=== PATIENT | male | born 1955 | race Caucasian/White ===

== ENCOUNTER → 2021-03-26 12:18 | Outpatient (BNVA) | payer OTHER, SELFPAY | PROVIDERS: Visit Provider Nurse Practitioner Family | DX: M54.9 Dorsalgia, unspecified (principal) | CPT/HCPCS: 81000 ==

== ENCOUNTER 2021-04-23 19:31 | Emergency (ER) | payer OTHER, SELFPAY ==
[2021-04-23 19:45] VITALS: BP 137/95; PULSE 87; RESP 16; TEMP 36.8; O2SAT 94; BMI 24.3
--- NOTE | 2021-04-23 23:18 | CTR_ITS ---
PROCEDURE INFORMATION: Exam: CT Abdomen And Pelvis Without Contrast Exam date and time: 04/23/2021 11:18 PM Age: 65 years old Clinical indication: Abdominal pain; Flank; Right; Prior surgery; Surgery date: 6+ months; Surgery type: Colon resection; Patient HX: HX of colon cancer; Additional info: Right flank pain TECHNIQUE: Imaging protocol: Computed tomography of the abdomen and pelvis without contrast. Radiation optimization: All CT scans at this facility use at least one of these dose optimization techniques: automated exposure control; mA and/or kV adjustment per patient size (includes targeted exams where dose is matched to clinical indication); or iterative reconstruction. COMPARISON: No relevant prior studies available. RADIATION DOSE METRICS: Total DLP (mGy-cm): 1205.2 FINDINGS: Lungs: The lung bases are clear. No effusion Liver: There is fatty infiltration of the liver. Gallbladder and bile ducts: No wall thickening, pericholecystic fluid or stones. Pancreas: Normal. No ductal dilation. Spleen: Normal. No splenomegaly. Adrenal glands: Normal. No mass. Kidneys and ureters: Multiple nonobstructing right renal stones, largest measures 4 mm. There is a subcentimeter low-attenuation lesions/lesions, of the right kidney which are too small to accurately characterize by CT. 6 mm mildly obstructing right distal ureteral stone. Multiple nonobstructing left renal stones, largest measures 6 mm. There is scarring and atrophy of the lower pole of the left kidney. Stomach and bowel: Unremarkable. No obstruction. No mucosal thickening. Appendix: Appendix has been removed. Intraperitoneal space: Unremarkable. No free air. No significant fluid collection. Vasculature: Unremarkable. No abdominal aortic aneurysm. Lymph nodes: Unremarkable. No enlarged lymph nodes. Urinary bladder: Unremarkable as visualized. Reproductive: Unremarkable as visualized. Bones/joints: Unremarkable. No acute fracture. Soft tissues: Unremarkable. CT/CT kidney stone [id number] IMPRESSION: 1. 6 mm mildly obstructing right distal ureteral stone. 2. Fatty infiltration of the liver. 3. Bilateral nonobstructing renal pelvis stones. COMMENTS: Consistent with the [employer]'s Incidental Findings Committee white paper (J Am Andie Radiol 2018): Any incidental renal lesion less than 1 cm or classified as too small to characterize, or any incidental cystic renal lesion characterized as simple-appearing, is likely benign. No follow-up imaging is recommended for these lesions per consensus recommendations based on imaging criteria. Radiation Dose CTDIVOL = (mGy): DLP = 1205.2 (mGy-cm)
--- NOTE | 2021-04-23 23:20 | ED_ITS ---
HPI - Male Genitourinary General: Chief complaint: Urogenital-Male Stated complaint: Passing Blood Time Seen by Provider: 04/23/21 23:16 History of Present Illness: HPI Narrative: Patient comes in today for complaints of right flank pain radiating into the groin. Patient reports that he had a similar episode about 1 month ago and his primary care thought it was probably a kidney stone and had recommended that they monitor for passage of the stone. Patient been doing well until this evening when he noticed more blood in his urine and came in to be evaluated. Patient does report some flank pain going into his right groin. Patient denies any problems urinating. Patient appears well. Patient appears in mild to moderate pain. Patient has been told in the past he has kidney stones. Review of Systems General: Reports: 10 or more systems reviewed and unremarkable except in HPI and below : Reports: other (Hematuria, right flank pain) [facility] ED PFSH: Social History (Updated 03/26/21 @ 12:11 by Queenie Verma LPN) Smoking and tobacco status: former smoker Physical Exam Const: COMMON NORMALS: no acute distress and patient oriented x3 GENERAL APPEARANCE: cooperative HENMT: COMMON NORMALS: normocephalic and Normal external nose present HEAD & SCALP: normal to inspection and normocephalic NOSE: Normal external nose present MOUTH: Normal oral and palatal mucosa present Eye: GENERAL EYE: appearance normal, both eyes and all related structures Neck/C-Spine: COMMON NORMALS: full ROM Chest: COMMONS NORMALS: normal inspection of the chest Resp: COMMON NORMALS: normal respiratory effort EFFORT & INSPECTION: Yes able to speak in complete sentences Cardio: COMMON NORMALS: regular rate and regular rhythm RATE: regular rate RHYTHM: regular rhythm GI: COMMON NORMALS: non-tender : BLADDER/KIDNEY EXAM: Yes CVA tenderness on the right Back/Pelvis: COMMON NORMALS: thoracic and lumbar spine normal to inspection GENERAL BACK: Yes CVA tenderness Extremity: COMMON NORMALS: normal to inspection Neuro: COMMON NORMALS: patient oriented x3 and moves all extremities Psych: COMMON NORMALS: mental status grossly normal and cooperative Skin: COMMON NORMALS: no rashes or lesions noted GENERAL SKIN EXAM: no rashes or lesions noted Course Vital Signs: Vital signs: Vital Signs Temperature 98.3 F 04/23/21 19:45 Pulse Rate 66 04/24/21 01:00 Respiratory Rate 18 04/24/21 01:03 Blood Pressure 134/89 04/24/21 01:00 Pulse Oximetry 99 04/24/21 01:03 MDM - Male MDM Narrative: Medical decision making narrative: Patient comes in with right flank pain radiating into the groin. On exam patient has some CVA tenderness in the right flank. Abdomen soft with some tenderness in the right lower quadrant. Vital signs are normal. Differential diagnosis includes renal calculi, appendicitis, urinary tract infection. Laboratory values noted a gross amount of blood in the urine, white blood cell count on labs was normal and renal function was normal. CT of the abdomen pelvis noted a 6 mm stone in the lower third of the right ureter. Reviewed exam with patient with recommendations for follow-up with urology. Discussed need for return to the ER for high fever or uncontrolled pain. Patient reported understanding and agreed to plan. Patient was given a dose of ceftriaxone for prophylaxis therapy due to some white blood cells in the urine although I do not believe patient has a infection at this time due to him not having fever and a normal blood cell count. Patient agreed to plan of treatment with recommendations for follow-up. Patient also reported understanding of need to return. Lab Data: Labs: Lab Results 04/23/21 04/23/21 04/24/21 Range/Units 23:36 23:36 00:21 WBC 7.6 (4.0-10.0) 10^3/ uL RBC 4.32 (4.1-5.3) 10^6/u L Hgb 13.2 (11.7-16.6) g/dL Hct 38.4 L (42.0-52.0) % MCV 88.9 (80-94) fL MCH 30.6 (28.0-34.0) pg MCHC 34.4 (30.0-36.0) g/dL RDW 13.2 (12.1-15.1) % Plt Count 214 (130-400) 10^3/c mm MPV 11.0 H (7.4-10.4) fL Neut % (Auto) 55.8 % Lymph % (Auto) 33.6 % [place] % (Auto) 7.9 % Eos % (Auto) 1.7 % Baso % (Auto) 0.7 % Neut # (Auto) 4.27 (1.8-7.7) 10^3/u L Lymph # (Auto) 2.6 (0.8-4.8) 10^3/u L [place] # (Auto) 0.6 (0.2-0.9) 10^3/u L Eos # (Auto) 0.1 (0.0-0.8) 10^3/u L Baso # (Auto) 0.1 (0.0-0.1) 10^3/u L Nucleated RBC % (a uto) 0 % Nucleated RBCs # 0.0 /100WBC Sodium 140 (136-145) mmol/L Potassium 3.9 (3.5-5.1) mmol/L Chloride 106 (98-107) mmol/L Carbon Dioxide 21 L (22-29) mmol/L Anion Gap 16.9 (5-19) BUN 19 (8-23) mg/dL Creatinine 0.9 (0.7-1.2) mg/dL GFR Calculation 84.4 L (90-130) mL/min Glucose 106 (65-115) mg/dL Calculated Osmolal ity 293 (285-295) mOsm/k g Calcium 8.7 (8.5-10.5) mg/dL Total Bilirubin 0.3 (0.15-1.2) mg/dL AST 26 (0-40) U/L ALT 35 (0-41) U/L Alkaline Phosphata se 63 (40-130) IU/L Total Protein 7.4 (6.6-8.7) g/dL Albumin 4.7 (3.5-5.2) g/dL Globulin 2.7 (1.3-4.6) g/dL Urine Color Brown (Yellow) Urine Appearance Sl cloudy A (CLEAR) Urine pH 5 (5-7) Ur Specific Gravit y 1.025 (1.005-1.030) Urine Protein 1+ H (Negative) Urine Glucose (UA) Norm (Normal) Urine Ketones Negative (Negative) Urine Blood 3+ H (Negative) Urine Nitrate Negative (Negative) Urine Bilirubin Neg (Negative) Urine Urobilinogen 1 H (Negative) mg/dL Ur Leukocyte Kristen ase 1+ H (Negative) Urine RBC Too numerous to c nt H (0-2) /hpf Urine WBC 15-25 H (0-5) /hpf Ur Squamous Epith Cells 0-4 H (0-5) /hpf Calcium Oxalate Cr ystal 40-55 H /hpf Amorphous Sediment Not Reportable Urine Bacteria 2+ H (NONE) /hpf Urine Mucus 2+ /hpf Discharge Plan Discharge Patient Disposition: Home Clinical Impression: Right ureteral stone Condition: Stable Prescriptions: New hydrocodone-acetaminophen 5-325 mg tablet 1 tab PO Q6H PRN (Reason: pain (scale score 7-10)) Qty: 14 RF: 0 tamsulosin 0.4 mg capsule 0.4 mg PO DAILY Qty: 10 RF: 0 ondansetron HCl 4 mg tablet 4 mg PO Q8H PRN (Reason: nausea and vomiting) Qty: 7 RF: 0 No Action simvastatin 40 mg tablet 40 mg PO DAILY RF: 0 fenofibrate nanocrystallized 145 mg tablet 145 mg PO DAILY RF: 0 montelukast [Singulair] 10 mg tablet 10 mg PO DAILY RF: 0 gabapentin 300 mg capsule 300 mg PO TID RF: 0 fluticasone propionate 50 mcg/actuation spray,suspension 1 spray intranasal BID RF: 0 albuterol sulfate [ProAir HFA] 90 mcg/actuation HFA aerosol inhaler 2 puff inhalation Q6H PRNRF: 0 aspirin [Adult Aspirin Regimen] 81 mg tablet,delayed release (DR/EC) 81 mg PO DAILY RF: 0 Discharge Orders: Discharge ED (Routine); Ordered 04/24/21 Ordered By: Beltran Montgomery Discharge Diet: Usual diet Discharge Activity: Increase activity as tolerated Patient Instructions: Kidney Stones (ED), Opioid Safety Activity Restrictions/Additional Instructions: Take medication as directed. Healthy diet and activity. Follow-up with urologist for further treatment. Case management will contact you on Monday to assist with the appointment. Return to the emergency room for high fever or uncontrolled pain. Coding Level of Care Code ED Store Hand for [facility]wsreek[facility] Exam Comprehensive
[2021-04-23 23:48] LABS: Basophils # 0.1 10^3/uL (0.0-0.1); Basophils % 0.7 %; Eosinophils # 0.1 10^3/uL (0.0-0.8); Eosinophils % 1.7 %; Hematocrit 38.4 % (42.0-52.0); Hemoglobin 13.2 g/dL (11.7-16.6); Lymphocytes # 2.6 10^3/uL (0.8-4.8); Lymphocytes % 33.6 %; Mean Corpuscular HGB Conc 34.4 g/dL (30.0-36.0); Mean Corpuscular Hemoglobin 30.6 pg (28.0-34.0); Mean Corpuscular Volume 88.9 fL (80-94); Monocytes # 0.6 10^3/uL (0.2-0.9); Monocytes % 7.9 %; Neutrophils # 4.27 10^3/uL (1.8-7.7); Neutrophils % 55.8 %; Nucleated Red Blood Cells % 0 %; Platelet Count 214 10^3/cmm (130-400); Red Blood Count 4.32 10^6/uL (4.1-5.3); Red Cell Distribution Width 13.2 % (12.1-15.1); White Blood Count 7.6 10^3/uL (4.0-10.0)
[2021-04-24 00:08] LABS: Alanine Aminotransferase 35 U/L (0-41); Albumin Level 4.7 g/dL (3.5-5.2); Alkaline Phosphatase 63 IU/L (40-130); Anion Gap 16.9 (5-19); Aspartate Amino Transferase 26 U/L (0-40); Blood Urea Nitrogen 19 mg/dL (8-23); Calcium 8.7 mg/dL (8.5-10.5); Carbon Dioxide 21 mmol/L (22-29); Chloride 106 mmol/L (98-107); Globulin 2.7 g/dL (1.3-4.6); Glomerular Filtration Rate 84.4 mL/min (90-130); Glucose 106 mg/dL (65-115); Osmolality Calculated 293 mOsm/kg (285-295); Potassium 3.9 mmol/L (3.5-5.1); Sodium 140 mmol/L (136-145); Total Bilirubin 0.3 mg/dL (0.15-1.2); Total Protein 7.4 g/dL (6.6-8.7)
[2021-04-24 00:26] VITALS: BP 134/89; PULSE 69; RESP 18; O2SAT 95
[2021-04-24 00:44] LABS: Bilirubin Urine Neg (Negative); Blood Urine 3+ (Negative); Glucose Urine UA Norm (Normal); Ketones Urine Negative (Negative); Nitrate Urine Negative (Negative); Protein Urine 1+ (Negative); Specific Gravity, Urine 1.025 (1.005-1.030); Urine Color Brown (Yellow); pH Urine 5 (5-7)
[2021-04-24 00:45] LABS: Add Urine Microscopic? YES; Leukocyte Esterase Urine 1+ (Negative); Urobilinogen Urine 1 mg/dL (Negative)
[2021-04-24 01:00] VITALS: BP 134/89; PULSE 66; RESP 18; O2SAT 95
[2021-04-24 01:01] LABS: RBC Urine TOO NUMEROUS TO CNT /hpf (0-2)
[2021-04-24 01:02] LABS: Add Urine Culture? Yes; Bacteria Urine 2+ /hpf; Calcium Oxalate Crystals Urine 40-55 /hpf; Mucus Urine 2+ /hpf; Squamous Epithelial Cell Urine 0-4 /hpf (0-5); WBC Urine 15-25 /hpf (0-5)
[2021-04-24 01:03] VITALS: RESP 18; O2SAT 99
[2021-04-24] MEDS: morphine 4 mg/mL SDV 1 mL 2 MG IVP (01:03)
[2021-04-24] MEDS: ketorolac 30 mg/mL INJ 15 MG IVP (01:03)
[2021-04-24] MEDS: ondansetron 2 mg/ML SDV 2 mL 4 MG IVP (01:03)
[2021-04-24] MEDS: cefTRIAXone 1,000 MG in sodium chloride 0.9% (plus) 50 ML 100 MG IV (01:09)
--- NOTE | 2021-04-26 08:23 | DCPLANNER ---
order manager had message to schedule a follow up appointment for patient with Dr. Mcknight. order manager called the office of Dr. Mcknight, spoke with Garima. order manager gave clinic patients information. order manager was told that patients information would be printed and reviewed. Clinic will call patient with appointment information. Patient has [employer] insurance, manager case emailed patients information over a secure email to Polly with [employer] [facility] so that the authorization process could be started.
--- NOTE | 2021-05-14 07:14 | DCPLANNER ---
Patient had a follow up appointment scheduled for 04.29.[address] Mcknight - patient did attend appointment.
== END 2021-04-24 01:26 | disposition home or self-care (01) ==
PROVIDERS: Emergency Provider Nurse Practitioner Family
DX: N20.1 Calculus of ureter (principal); Z79.82 Long term (current) use of aspirin; Z87.891 Personal history of nicotine dependence
CPT/HCPCS: 74176; 80053; 81001; 85025; 87077; 87086; 87186; 96365; 96375; 99284; J0696; J1885; J2270; J2405

== ENCOUNTER 2021-04-29 07:18 | Outpatient (CLI) | payer OTHER, SELFPAY ==
--- NOTE | 2021-04-28 10:57 | XR_ITS ---
WS: [id number] KUB, 04/29/2021 Clinical Data: STONES Comparison: CT abdomen and pelvis, CT 2020. Findings: No abnormal intraabdominal masses are seen. There is no dilatated small bowel or evidence of obstruct ion. There is a 0.6 cm calcification overlying the left kidney. There is a possible distal right ureteral calcification. There are clips overlying the sacrum from surgery. XR/XR KUB [id number] Impression: 1. Probable distal right ureteral calculus. 2. Probable left renal calculus.
== END 2021-04-29 07:19 | disposition home or self-care (01) ==
LOC: RAD 07:20
PROVIDERS: PCP Urology; Visit Provider Urology
DX: N20.9 Urinary calculus, unspecified (principal)
CPT/HCPCS: 74018; 81003; 87635

== ENCOUNTER 2021-05-03 11:36 | Day surgery (SDC) | payer OTHER, SELFPAY ==
[2021-04-30 11:35] VITALS: BMI 24.5
[2021-05-03] VITALS (7 sets, daily range): BP systolic 110–138; BP diastolic 69–97; PULSE 57–66; RESP 16–17; TEMP 36.2–36.6; O2SAT 90–98
--- NOTE | 2021-05-03 11:42 | XRR_ITS ---
PROCEDURE INFORMATION: Exam: XR Abdomen Exam date and time: 05/03/2021 11:42 AM Age: 65 years old Clinical indication: Screening exam; Other: Preop right eswl; Prior surgery; Surgery type: Colon TECHNIQUE: Imaging protocol: XR of the abdomen. Views: Frontal supine view of the abdomen. 1 View. COMPARISON: CR XR KUB [id number] 04/29/2021 7:34 AM FINDINGS: Gastrointestinal tract: Normal. No bowel dilation. Intraperitoneal space: Clips are present in the pelvis from old surgery. Organs: Stable 6 mm calcification projects on the left kidney. No ureteral calculi are seen. Bones/joints: Unremarkable. XR/XR KUB [id number] IMPRESSION: 1. Stable left nephrolithiasis. 2. No acute abnormality.
[2021-05-03] MEDS: sodium chloride 0.9% 1,000 ML 30 ML IV (12:30)
--- NOTE | 2021-05-03 13:52 | W.PM.OPSUD ---
Surgery/Procedure H&P Update DATE OF PROCEDURE: May 03, 2021 DATE H&P PERFORMED: 04/29/21 H&P UPDATE INFORMATION: I have reviewed H&P completed within last 30 days, I have examined patient prior to procedure, No changes to prior documentation and H&P is in [facility] [place] indicated CHANGES TO PREVIOUS DOCUMENTATION: No change in the position of the stone on KUB PREOP DIAGNOSIS: Right distal ureteral stone PLANNED PROCEDURE: Operation Date: 05/03/21 13:15 Proposed Procedures p Cystoscopy 95934 12456 n20.0 n20.1(Not Applicable) - Duane Mcknight MD s right ESWL(Right) - Duane Mcknight MD s Ureteral Stent Placement(Not Applicable) - Duane Mcknight MD
[2021-05-03] MEDS: levofloxacin-dextrose 5 % 500 MG/100 ML PREMIX 100 MG IV (14:15)
--- NOTE | 2021-05-03 14:35 | ANES.PREANE2 ---
Pre-Anesthetic Assessment Pre-Anesthetic Assessment: Height/Weight: Height 1.83 m Weight 82.1 kg Temp Pulse Resp BP Pulse Ox 97.3 F L 66 16 138/97 95 05/03/21 12:15 05/03/21 12:15 05/03/21 12:15 05/03/21 12:15 05/03/21 12:15 Preop Diagnosis: Right distal ureteral stone Proposed Procedure: Operation Date: 05/03/21 13:15 Proposed Procedures p Cystoscopy [id number] 50806 n20.0 n20.1(Not Applicable) - Duane Mcknight MD s right ESWL(Right) - Duane Mcknight MD s Ureteral Stent Placement(Not Applicable) - Duane Mcknight MD Was Beta Jessica taken within 24 hours: N/A Was Clonidine taken within 24 hours: N/A Last intake: Intake Last Liquid Date 05/03/21 Last Liquid Time 07:00 Last Solid Date 05/01/21 Last Solid Time 21:00 Social: Social History: No alcohol and No tobacco Exam: Pre-Anes Outpt Exam: alert, oriented x 3, clear to auscultation bilaterally and regular rate & rhythm Airway: Submandibular: WNL Cervical ROM: WNL MP: 2 Dentition: Partials Pulmonary: Pulmonary: Asthma Metabolic: Metabolic: Hyperlipidemia Anesthetic Plan: ASA status: 2 Anesthesia: General Risk of > 500 ml blood loss (7ml/kg in children): No Meds/Allergies Current Medications: Current Medications Generic Name Dose Route Start Last Admin Trade Name Freq PRN Reason Stop Dose Admin Sodium Chloride 1,000 mls @ 30 ml s/hr 05/03/21 11:45 05/03/21 12:30 Sodium Chloride 0.9% IV 05/04/21 11:44 30 mls/hr .Q24H DANIELLA Administration PFSH Anesthesia PFSH: Medical History Bilateral renal stones Surgical History H/O left knee surgery S/P colon resection Family History Father , at age 44 Cancer bone Mother , at age 29 Struck by lightning Social History Smoking and tobacco status: former smoker Alcohol intake: current Alcohol intake frequency: holidays/special occasions only Marital status: Current occupational status: retired History of recent travel: No Data Anesthesia Cardiac Studies: No Data to Display
[2021-05-03] MEDS: iohexol 300 mg/mL 50 mL Btl XX (15:02)
--- NOTE | 2021-05-03 15:09 | PM.OP ---
Operative Report Date of procedure: May 03, 2021 Pre-op Diagnosis: Right distal ureteral stone Post-op diagnosis: same Procedure Done: 1. Right distal ureteral stone extracorporeal shockwave lithotripsy 2. Right retrograde pyelogram, ureteral stent placement. (6 Croatian by 30 cm double-pigtail without string) Implants: Right ureteral stent Specimens removed/disposition: None Surgeon: Juan Luis Universal Branch Consultant: Lithotripsy Director Product Development: Mary Anesthesia: General Estimated blood loss: Less than 10 cc Urine output: Not measured Complications: None Findings: 1. The stone appeared to break well. 2. A stent was left indwelling. (6 Croatian by 30 cm double-pigtail without string) 3. Contrast injection confirmed intrarenal pelvic location of the wire with some persistent dilation Condition: stable Disposition: PACU Brief History: Mr. Torres is a very pleasant 65-year-old white male recently diagnosed with a large right distal ureteral stone with obstructive changes and marked hydronephrosis. He had failed to pass the stone over a fairly protracted period of symptoms. Ultimately he chose to proceed with treatment and after description of endoscopic versus ESWL he chose the latter. Procedure: After routine preoperative evaluation examination and obtaining of informed consent he was taken to the operating suite on 05/03/2021 where general anesthesia was administered without difficulty after appropriate timeout was performed, SCDs confirmed to be functioning, preoperative antibiotics administered, beta-casimiro protocol confirmed. Positioned on the Dornier unit such that the stone was located at the focal point with the shock head positioned anteriorly and the patient in supine position. A total of about 2200 shocks were administered to the stone with good change. Shockwave was initiated intensity of 1 advanced an intensity of 4. Rate was initiated at 70 but advanced to 90 once change was identified. At the completion of the procedure when the stone appeared to be well broken up he was then positioned in dorsolithotomy position paying careful attention to avoiding pressure points. Prepped and draped in usual sterile fashion. 21 Croatian cystoscope with 30 degree lens was introduced into the urethra meatus and advanced into the bladder without difficulty. Flexible tip guidewire was advanced up to the stone but would not easily pass. It was exchanged for a Glidewire which easily bypassed the stone fragments without difficulty. A 6 Croatian open-ended ureteral catheter was then advanced over the guidewire the guidewire removed and contrast was injected in the renal pelvis which confirmed intraluminal positioning and some persistence of hydronephrosis as expected. Irregular flexible tip guidewire was then advanced through the open-ended ureteral catheter the catheter removed and a 6 Croatian by 30 cm double-pigtail stent was advanced over the guidewire through the cystoscope into appropriate position as confirmed via fluoroscopy and cystoscopy. The bladder was drained and the procedure was completed. Reinspection of the area of treatment showed no obvious residual stone fragments identifiable with fluoroscopy. He was awakened in the operating room and returned to recovery in stable condition. PLANS: 1. Discharge from outpatient surgery is anticipated 2. Follow-up in 7 to 10 days with a KUB for possible cystoscopy and stent removal.
--- NOTE | 2021-05-03 15:17 | SUR.PHASEI ---
PT TO PACU SLEEPY WITH GOOD RESP NOTED PT DOES NOT AWAKE TO TOUCH, MASK 8L O2 TO PT.
--- NOTE | 2021-05-03 15:33 | ANE.PACU2 ---
Inpatient post-anesthesia follow up: Airway intact: Yes Vital signs: Temperature 97.2 F Pulse Rate 64 Respiratory Rate 17 Blood Pressure 111/71 Pulse Oximetry 96 Oxygen Delivery Me thod Room Air Oxygen Flow Rate 8 Fraction of Inspir ed Oxygen Hydration adequate: Yes Nausea and vomiting: No Pain level: 2 Mental status: Baseline
== END 2021-05-03 16:20 | disposition home or self-care (01) ==
PROVIDERS: PCP Nurse Practitioner; Visit Provider Urology
PROC: 0TJB8ZZ Inspection of Bladder, Via Natural or Artificial Opening Endoscopic (ICD-10-PCS; CPT 52000; principal; 2021-05-03 13:15)
PROC: (CPT 50590; 2021-05-03 13:15)
PROC: (CPT 50605; 2021-05-03 13:15)
DX: N20.1 Calculus of ureter (principal); J45.909 Unspecified asthma, uncomplicated; E78.5 Hyperlipidemia, unspecified; Z87.891 Personal history of nicotine dependence; Z79.82 Long term (current) use of aspirin
CPT/HCPCS: 50590; 52332; 74018; C2625; J1956; J2405; J2704; J3010; J3490; J7030; Q9967

== ENCOUNTER 2021-05-14 08:05 | Outpatient (CLI) | payer OTHER, SELFPAY ==
--- NOTE | 2021-05-14 08:00 | XR_ITS ---
WS: [id number] KUB, AP view, 05/14/2021 Clinical Data: post op Comparison: KUB, 05/03/2021. Findings: There is a right ureteral stent in good position. There are small calcifications overlying both kidne ys. No abnormal intraabdominal masses are seen. There is no dilatated small bowel or evidence of obstruct ion. XR/XR KUB [id number] Impression: Satisfactory position right ureteral stent.
== END 2021-05-14 08:06 | disposition home or self-care (01) ==
PROVIDERS: PCP Nurse Practitioner; Visit Provider Urology
DX: N20.0 Calculus of kidney (principal); Z96.0 Presence of urogenital implants
CPT/HCPCS: 74018; 81003

== ENCOUNTER → 2021-07-19 08:11 | Outpatient (BNVA) | payer OTHER, SELFPAY | PROVIDERS: PCP Nurse Practitioner; Visit Provider Specialist | DX: M25.511 Pain in right shoulder (principal); M19.011 Primary osteoarthritis, right shoulder | CPT/HCPCS: 73030 ==

== ENCOUNTER 2021-08-09 13:20 | Outpatient (CLI) | payer OTHER, SELFPAY ==
--- NOTE | 2021-08-09 13:26 | MR_ITS ---
WS: [id number] MRI RIGHT SHOULDER HISTORY: Chronic shoulder pain with decreasing motion. Osteoarthritis. COMPARISON: Radiograph 07/19/2021 TECHNIQUE: Multiplanar sequences of the shoulder joint are submitted. Mild AC joint narrowing with hypertrophic bone formation and mild thickening of the capsule. Only a v marie small amount of fluid in the subacromial and subdeltoid bursa. Small osteophyte and associated 5 mm cyst with mild encroachment upon the supraspinatus muscle and tendon at the level of the glenoid f rom the AC joint. There is an additional 6 mm osteophyte along the distal undersurface of the acromio n with adjacent fluid causing mild subacromial impingement upon the supraspinatus tendon. No os acrom ion. Biceps tendon in good position. Small multifocal insertion site tears involving the supraspinatus and infraspinatus tendons. These ar e partial-thickness tears involving the articular surface. Most significant involvement is of the sup raspinatus tendon. Subscapularis tendon appears intact. No muscle atrophy or edema. Mild intrasubstan ce degeneration within the labrum. No labral tear. Subchondral cystic changes are noted in the cut off saw operator metal ior lateral humeral head at the site of the rotator cuff attachments. MR/MR shoulder RT wo con* [id number] IMPRESSION: 1. Mild AC joint osteoarthritis with osteophyte and degenerative cystic change s mildly encroaching upon the supraspinatus tendon and muscle tear 2. Mild subacromial impingement upon the supraspinatus by 6 mm osteophyte. 3. Multiple small insertion site tears involving the supraspinatus and to a le sser extent infraspinatus tendon without retraction or muscle atrophy.
== END 2021-08-09 13:21 | disposition home or self-care (01) ==
PROVIDERS: PCP Nurse Practitioner; Visit Provider Specialist
DX: M19.011 Primary osteoarthritis, right shoulder (principal); M75.81 Other shoulder lesions, right shoulder; M25.711 Osteophyte, right shoulder; M75.101 Unspecified rotator cuff tear or rupture of right shoulder, not specified as traumatic
CPT/HCPCS: 73221

== ENCOUNTER 2021-11-18 12:12 | Outpatient (CLI) | payer OTHER, SELFPAY ==
--- NOTE | 2021-11-18 13:00 | XR_ITS ---
WS: [id number] XR KUB [id number] REASON FOR EXAM: BILATERAL RENAL STONES FINDINGS: Compared to 05/14/2021, the right ureteral stent is been removed. Sub-2 mm right lower pole renal calculus. No change from the previous examination. 4 mm left lower pole intrarenal calculus unchanged compared to the previous examination. No calculi along the course of the ureters or overlying the bladder identified. No other significant abdominal abnormality. XR/XR KUB [id number] IMPRESSION: Stable intrarenal calculi. The CT scan of 04/23/2021 demonstrated the above calculi as well as several othe r calculi within both the right and left kidneys which are not readily identifi able on the KUB of 05/14/2021 or the current KUB. Previously demonstrated right u reteral calculus was removed.
== END 2021-11-18 12:13 | disposition home or self-care (01) ==
LOC: RAD 12:16
PROVIDERS: PCP Nurse Practitioner; Visit Provider Urology
DX: N20.0 Calculus of kidney (principal)
CPT/HCPCS: 74018; 81003

== ENCOUNTER 2022-11-02 11:10 | Emergency (ER) | payer OTHER, SELFPAY ==
--- NOTE | 2022-11-02 11:22 | XRR_ITS ---
PROCEDURE INFORMATION: Exam: XR Chest Exam date and time: 11/02/2022 11:41 AM Age: 67 years old Clinical indication: Cough and dyspnea and shortness of breath; Additional info: Dyspnea/cough TECHNIQUE: Imaging protocol: Radiologic exam of the chest. Views: 1 view. COMPARISON: CR XR KUB [id number] 11/18/2021 12:53 PM FINDINGS: Lungs: Is a tiny benign granuloma in the right upper lobe.. No consolidation. Pleural spaces: Unremarkable. No pleural effusion. No pneumothorax. Heart/Mediastinum: Unremarkable. No cardiomegaly. Bones/joints: Unremarkable. XR/XR chest 1V portable [id number] IMPRESSION: No acute findings.
[2022-11-02 11:26] VITALS: BP 131/94; PULSE 73; RESP 16; TEMP 36.6; O2SAT 96; BMI 25.2
--- NOTE | 2022-11-02 11:30 | ED_ITS ---
HPI - SOB/Dyspnea General: Chief Complaint: Shortness of Breath/Dyspnea Stated Complaint: [facility] Time Seen by Provider: 11/02/22 11:22 Source: patient Mode of arrival: ambulatory History of Present Illness: HPI Narrative: 67-year-old male presents emergency room from the [facility]. Patient reports he has had a chronic cough with chest discomfort associated with the cough only for nearly a month now. He was seen earlier in the month thought to have a mild pneumonia treated with antibiotics his coughing is persisted although is no longer running fever and having only minimally productive cough patient does not smoke. He states that initially began after he been working outside around some leaves and some smoke then he got what they thought was a pneumonia and its persisted since that time he has used some albuterol as needed which helps minimally. He has no radiation of pain to his neck arms or back is not associated with exertion MD elicited complaint: shortness of breath and cough Onset (ago): week(s) Context: recent illness Timing: intermittent Severity: moderate Exacerbating factors: nothing Relieving factors: nothing Associated symptoms: Deny abdominal pain, chest congestion, chest pain, cough, diaphoresis, dizziness, extremity pain, fever(s), hemoptysis, lightheadedness, myalgias, nausea, orthopnea, palpitations, paresthesias, polydipsia, polyuria, rash, sense of impending doom, syncope or vomiting Treatment prior to arrival: none Review of Systems Const: Denies: fever(s), chills, fatigue, malaise or diaphoresis ENMT: Denies: throat pain, ear or mastoid pain, nasal discharge or nasal congestion Card: Denies: chest pain, palpitations, lightheadedness, syncope or orthopnea Resp: Reports: non-productive cough and wheezing; Denies: dyspnea, productive cough, hemoptysis or chest congestion GI: Denies: abdominal pain, nausea or vomiting : Denies: flank pain, dysuria, urinary frequency or urinary urgency Musc: Denies: extremity pain Skin/Breast: Denies: rash or pruritus Neuro: Denies: dizziness Endo: Denies: polyuria or polydipsia PFSH ED PFSH: Medical History Bilateral renal stones Surgical History H/O left knee surgery S/P colon resection Family History Father , at age 44 Cancer bone Mother , at age 29 Struck by lightning Social History Smoking and tobacco status: former smoker Alcohol intake: current Alcohol intake frequency: holidays/special occasions only Marital status: Current occupational status: retired History of recent travel: No Physical Exam Const: COMMON NORMALS: no acute distress GENERAL APPEARANCE: cooperative and comfortable ORIENTATION/CONSCIOUSNESS: Yes awake, Yes oriented to person, Yes oriented to place and Yes oriented to time HENMT: COMMON NORMALS: normocephalic, atraumatic and hearing grossly normal bilaterally HEAD & SCALP: normocephalic and atraumatic Resp: COMMON NORMALS: normal respiratory effort, No retractions, No use of accessory muscles and clear to auscultation bilaterally AUSCULTATION: clear to auscultation bilaterally Cardio: COMMON NORMALS: regular rate, regular rhythm and No murmurs present (Cardio) RATE: regular rate RHYTHM: regular rhythm GI: COMMON NORMALS: Soft to palpation and No hepatosplenomegaly present AUSCULTATION: Yes normoactive bowel sounds PALPATION: Yes Soft to palpation, No Tenderness to palpation present (GI), No Guarding due to palpation present (GI) and Yes No hepatosplenomegaly present Extremity: COMMON NORMALS: normal to inspection, capillary refill normal, no clubbing, cyanosis or edema, no calf tenderness and no pedal edema Neuro: SENSORIUM/ORIENTATION: Yes oriented to person, Yes oriented to place and Yes oriented to time Skin: COMMON NORMALS: no rashes or lesions noted GENERAL SKIN EXAM: no rashes or lesions noted Course Vital Signs: Vital signs: Vital Signs Temperature 97.8 F 11/02/22 11:26 Pulse Rate 77 11/02/22 13:00 Respiratory Rate 16 11/02/22 13:00 Blood Pressure 123/89 11/02/22 13:00 Pulse Oximetry 92 11/02/22 13:00 Oxygen Delivery Me thod 11/02/22 11:26 MDM - SOB/Dyspnea Medical Decision Making Chest x-ray is normal his exam is normal. I suspect this is postinfectious bronchospasm based on his history and presentation. Recommend that he starts on Advair 1 puff twice daily and then use albuterol as needed if he does begin needs improvement over the next couple of months he probably should have further evaluation including pulmonary function tests and evaluation with a pig machine supervisor if he has any worsening or change symptoms return to the emergency room. Medical Records I reviewed the patient's medical records. Lab Data I reviewed the patient's lab results. 11/02/22 11:42 11/02/22 11:42 Labs/Radiology: Radiology Impressions Chest X-Ray 11/02/22 11:22 IMPRESSION: No acute findings. Laboratory Results WBC 4.0 10^3/uL (4.0-10.0) 11/02/22 11:42 RBC 4.51 10^6/uL (4.1-5.3) 11/02/22 11:42 Hgb 13.8 g/dL (11.7-16.6) 11/02/22 11:42 Hct 40.7 % (42.0-52.0) L 11/02/22 11:42 MCV 90.2 fl (80-94) 11/02/22 11:42 MCH 30.6 pg (28.0-34.0) 11/02/22 11:42 MCHC 33.9 g/dL (30.0-36.0) 11/02/22 11:42 RDW 13.2 % (12.1-15.1) 11/02/22 11:42 Plt Count 191 10^3/cmm (130-400) 11/02/22 11:42 MPV 10.3 fL (7.4-10.4) 11/02/22 11:42 Neut % (Auto) 49.5 % 11/02/22 11:42 Lymph % (Auto) 38.4 % 11/02/22 11:42 [place] % (Auto) 10.1 % 11/02/22 11:42 Eos % (Auto) 1.5 % 11/02/22 11:42 Baso % (Auto) 0.5 % 11/02/22 11:42 Neut # (Auto) 1.97 10^3/uL (1.8-7.7) 11/02/22 11:42 Lymph # (Auto) 1.5 10^3/uL (0.8-4.8) 11/02/22 11:42 [place] # (Auto) 0.4 10^3/uL (0.2-0.9) 11/02/22 11:42 Eos # (Auto) 0.1 10^3/uL (0.0-0.8) 11/02/22 11:42 Baso # (Auto) 0.0 10^3/uL (0.0-0.1) 11/02/22 11:42 Nucleated RBC % (auto) 0 % 11/02/22 11:42 Nucleated RBCs # 0.0 /100WBC 11/02/22 11:42 Sodium 138 mmol/L (136-145) 11/02/22 11:42 Potassium 4.1 mmol/L (3.5-5.1) 11/02/22 11:42 Chloride 104 mmol/L (98-107) 11/02/22 11:42 Carbon Dioxide 24 mmol/L (22-29) 11/02/22 11:42 Anion Gap 14.1 (5-19) 11/02/22 11:42 BUN 19 mg/dL (8-23) 11/02/22 11:42 Creatinine 1.0 mg/dL (0.7-1.2) 11/02/22 11:42 GFR Calculation 74.3 mL/min (90-130) L 11/02/22 11:42 Glucose 122 mg/dL (65-115) H 11/02/22 11:42 Calculated Osmolality 290 mOsm/kg (285-295) 11/02/22 11:42 Calcium 9.5 mg/dL (8.5-10.5) 11/02/22 11:42 Total Bilirubin 0.5 mg/dL (0.15-1.2) 11/02/22 11:42 AST 19 U/L (0-40) 11/02/22 11:42 ALT 16 U/L (0-41) 11/02/22 11:42 Alkaline Phosphatase 53 U/L (40-130) 11/02/22 11:42 Total Protein 7.3 g/dL (6.6-8.7) 11/02/22 11:42 Albumin 4.2 g/dL (3.5-5.2) 11/02/22 11:42 Globulin 3.1 g/dL (1.3-4.6) 11/02/22 11:42 Discharge Plan Discharge Patient Disposition: Home Clinical Impression: Post-infection bronchospasm Condition: Stable Prescriptions: New Advair Diskus 100-50 mcg/dose blister with device 1 inh inhalation BID Qty: 60 0RF albuterol sulfate 90 mcg/actuation HFA aerosol inhaler 2 inh INHALATION Q4H PRN (Reason: shortness of breath or wheezing) Qty: 18 0RF Medrol (Pedro) 4 mg tablets,dose pack See Rx Instructions .ROUTE .COMPLEX Qty: 21 0RF Rx Instructions: orally per package directions No Action multivitamin Tablet 1 tab PO DAILY simvastatin 40 mg tablet 40 mg PO DAILY fenofibrate nanocrystallized 145 mg tablet 145 mg PO DAILY montelukast [Singulair] 10 mg tablet 10 mg PO DAILY gabapentin 300 mg capsule 300 mg PO TID fluticasone propionate 50 mcg/actuation spray,suspension 1 spray intranasal BID Rx Instructions: administer into each nostril albuterol sulfate [ProAir HFA] 90 mcg/actuation HFA aerosol inhaler 2 puff inhalation Q6H PRN (Reason: sob) aspirin [Adult Aspirin Regimen] 81 mg tablet,delayed release (DR/EC) 81 mg PO DAILY Zyrtec 10 mg capsule 10 mg PO DAILY PRN ergocalciferol (vitamin D2) 1,000 unit tablet PO tamsulosin 0.4 mg capsule 0.4 mg PO DAILY Qty: 10 0RF ondansetron HCl 4 mg tablet 4 mg PO Q8H PRN (Reason: nausea and vomiting) Qty: 7 0RF Discharge Orders: Discharge ED (Routine); Ordered 11/02/22 Ordered By: Fernie Marino Referrals: Tamiko Anderson FNP [Primary Care Provider] - Patient Instructions: Opioid Safety, Pain Management Activity Restrictions/Additional Instructions: You were seen today for persistent cough and shortness of breath. Recommend that you start the Advair 1 puff twice a day and steroid burst and taper. You can continue to use the albuterol as needed for cough or shortness of breath. Continue to follow-up with your primary care if this persists at some point you may need to see the pig machine supervisor. Coding Level of Care Code ED [facility] for [place]
[2022-11-02 11:34] VITALS: BP 131/94; PULSE 70; RESP 16; O2SAT 97
--- NOTE | 2022-11-02 11:35 | ECG_ITS ---
[facility] Test Date: 2022-11-02 Pat Name: Thaddeus Torres Department: Room: Gender: Male Scrap Piler: : 1955 Requested By: Fernie Martin Order Number: [id number] Pretty MD: Arleen Leyva M.D. Measurements Intervals [place] Rate: 71 P: 18 LA: 191 QRS: 66 QRSD: 96 T: 42 QT: 410 QTc: 447 Interpretive Statements SINUS RHYTHM POSSIBLE LATERAL MYOCARDIAL INFARCTION , OF INDETERMINATE AGE [30 ms Q WAVE IN I/aVL/V5/V6] No previous ECG available for comparison Electronically Signed On 11-02-2022 12:44:34 [employer] by Arleen Leyva M.D. [email or web address]
[2022-11-02 11:58] LABS: Basophils % 0.5 %; Eosinophils # 0.1 10^3/uL (0.0-0.8); Eosinophils % 1.5 %; Hematocrit 40.7 % (42.0-52.0); Hemoglobin 13.8 g/dL (11.7-16.6); Lymphocytes # 1.5 10^3/uL (0.8-4.8); Lymphocytes % 38.4 %; Mean Corpuscular HGB Conc 33.9 g/dL (30.0-36.0); Mean Corpuscular Hemoglobin 30.6 pg (28.0-34.0); Mean Corpuscular Volume 90.2 fl (80-94); Mean Platelet Volume 10.3 fL (7.4-10.4); Monocytes # 0.4 10^3/uL (0.2-0.9); Monocytes % 10.1 %; Neutrophils # 1.97 10^3/uL (1.8-7.7); Neutrophils % 49.5 %; Nucleated Red Blood Cells % 0 %; Platelet Count 191 10^3/cmm (130-400); Red Blood Count 4.51 10^6/uL (4.1-5.3); Red Cell Distribution Width 13.2 % (12.1-15.1)
[2022-11-02 12:20] LABS: Alanine Aminotransferase 16 U/L (0-41); Albumin Level 4.2 g/dL (3.5-5.2); Alkaline Phosphatase 53 U/L (40-130); Anion Gap 14.1 (5-19); Aspartate Amino Transferase 19 U/L (0-40); Blood Urea Nitrogen 19 mg/dL (8-23); Calcium 9.5 mg/dL (8.5-10.5); Carbon Dioxide 24 mmol/L (22-29); Chloride 104 mmol/L (98-107); Globulin 3.1 g/dL (1.3-4.6); Glomerular Filtration Rate 74.3 mL/min (90-130); Glucose 122 mg/dL (65-115); Osmolality Calculated 290 mOsm/kg (285-295); Potassium 4.1 mmol/L (3.5-5.1); Sodium 138 mmol/L (136-145); Total Bilirubin 0.5 mg/dL (0.15-1.2); Total Protein 7.3 g/dL (6.6-8.7)
[2022-11-02 12:34] VITALS: BP 123/89; PULSE 70; RESP 16; O2SAT 93
[2022-11-02 13:00] VITALS: BP 123/89; PULSE 77; RESP 16; O2SAT 92
== END 2022-11-02 12:59 | disposition home or self-care (01) ==
PROVIDERS: Emergency Provider Family Medicine; PCP Nurse Practitioner
DX: J20.8 Acute bronchitis due to other specified organisms (principal); Z87.891 Personal history of nicotine dependence
CPT/HCPCS: 71045; 80053; 85025; 93005; 99285

== ENCOUNTER 2022-11-17 10:17 | Outpatient (CLI) | payer OTHER, SELFPAY ==
--- NOTE | 2022-11-17 10:28 | XR_ITS ---
WS: [id number] XR KUB [id number] REASON FOR EXAM: STONES FINDINGS: Lower pole left renal calculus identified and unchanged in position or size compared to 11/18/2021. The 2 right intrarenal calculi demonstrated on the previous examination are not readily identifiable due to overlying bowel. No other urinary tract calculi are identified. No other abdominal abnormality. XR/XR KUB [id number] IMPRESSION: Stable urinary tract calculi as above.
== END 2022-11-17 10:18 | disposition home or self-care (01) ==
LOC: RAD 10:19
PROVIDERS: PCP Nurse Practitioner; Visit Provider Urology
DX: N20.0 Calculus of kidney (principal); N12 Tubulo-interstitial nephritis, not specified as acute or chronic
CPT/HCPCS: 74018; 81003; 99213

== ENCOUNTER 2023-02-10 06:00 | Outpatient (RCR) | payer OTHER, SELFPAY | END 2023-03-05 23:59 | disposition home or self-care (01) | LOC: TPT 06:00 | PROVIDERS: Visit Provider Orthopaedic Surgery | DX: Z47.89 Encounter for other orthopedic aftercare (principal); Z98.890 Other specified postprocedural states; M19.011 Primary osteoarthritis, right shoulder; M75.21 Bicipital tendinitis, right shoulder; M75.111 Incomplete rotator cuff tear or rupture of right shoulder, not specified as traumatic | CPT/HCPCS: 97110; 97140; 97162 ==

== ENCOUNTER 2023-03-06 06:00 | Outpatient (RCR) | payer OTHER, SELFPAY | END 2023-04-05 23:59 | disposition home or self-care (01) | LOC: TPT 06:00 | PROVIDERS: Visit Provider Orthopaedic Surgery | DX: Z47.89 Encounter for other orthopedic aftercare (principal) | CPT/HCPCS: 97110; 97140 ==

== ENCOUNTER 2023-04-06 06:00 | Outpatient (RCR) | payer OTHER, SELFPAY | END 2023-05-05 23:59 | disposition home or self-care (01) | LOC: TPT 06:00 | PROVIDERS: Visit Provider Orthopaedic Surgery | DX: Z47.89 Encounter for other orthopedic aftercare (principal) | CPT/HCPCS: 97110; 97140 ==

== ENCOUNTER 2023-05-06 06:00 | Outpatient (RCR) | payer OTHER, SELFPAY | END 2023-06-05 23:59 | disposition home or self-care (01) | LOC: TPT 06:00 | PROVIDERS: Visit Provider Orthopaedic Surgery | DX: Z47.89 Encounter for other orthopedic aftercare (principal) | CPT/HCPCS: 97110; 97140 ==

== ENCOUNTER → 2023-06-01 08:31 | Outpatient (BNVA) | payer OTHER, SELFPAY | PROVIDERS: PCP Nurse Practitioner; Visit Provider Nurse Practitioner Family | DX: L57.0 Actinic keratosis (principal); L57.8 Other skin changes due to chronic exposure to nonionizing radiation; L81.4 Other melanin hyperpigmentation; D22.5 Melanocytic nevi of trunk; L85.3 Xerosis cutis | CPT/HCPCS: 17000; 99213 ==

== ENCOUNTER 2023-06-06 06:00 | Outpatient (RCR) | payer OTHER, SELFPAY | END 2023-06-07 23:59 | disposition home or self-care (01) | LOC: TPT 06:00 | PROVIDERS: PCP Nurse Practitioner; Visit Provider Orthopaedic Surgery | DX: Z47.89 Encounter for other orthopedic aftercare (principal) | CPT/HCPCS: 97110 ==

== ENCOUNTER → 2024-05-30 14:09 | Outpatient (BNVA) | payer OTHER, SELFPAY | PROVIDERS: PCP Nurse Practitioner; Visit Provider Nurse Practitioner Family | DX: L57.0 Actinic keratosis (principal); L24.9 Irritant contact dermatitis, unspecified cause; L73.8 Other specified follicular disorders; L85.3 Xerosis cutis; L81.4 Other melanin hyperpigmentation | CPT/HCPCS: 17000; 99213 ==